=== PATIENT | female | born 1950 | race Caucasian/White ===

== ENCOUNTER 2017-07-15 08:48 | Inpatient (IN) | payer MEDICARE, OTHER, BC ==
[2017-07-15 11:18] LABS: ADD MAN DIFF? NO
[2017-07-15 11:20] LABS: WHITE BLOOD COUNT 15.3 10^3/ul (4.8-10.8)
[2017-07-15 11:20] LABS: BASOPHILS % 0.2 % (0.0-2.0); EOSINOPHILS % 0.1 % (0.0-7.0); HEMOGLOBIN 7.9 g/dl (12.0-16.0); LYMPHOCYTES # 1.5 10^3/ul (0.8-2.9); LYMPHOCYTES % 9.9 % (15.0-51.0); MEAN CORPUSCULAR HEMOGLOBIN 25.8 pg (29.0-33.0); MEAN CORPUSCULAR HGB CONC 32.9 g/dl (32.0-37.0); MEAN CORPUSCULAR VOLUME 78.4 fl (82.0-101.0); MEAN PLATELET VOLUME 8.7 fl (7.4-10.4); MONOCYTE # 1.5 10^3/ul (0.3-0.9); MONOCYTES % 9.7 % (0.0-11.0); NEUTROPHIL # 11.8 10^3/ul (1.6-7.5); NEUTROPHILS % 76.9 % (39.0-77.0); PLATELET COUNT 422 10^3/UL (140-415); RED BLOOD COUNT 3.06 10^6/ul (4.20-5.40)
[2017-07-15 11:27] LABS: ALANINE AMINOTRANSFERASE 44 IU/L (13-69); ALBUMIN 3.6 g/dl (3.3-4.9); ALBUMIN/GLOBULIN RATIO 0.94; ALKALINE PHOSPHATASE 100 IU/L (42-121); ANION GAP 17 (8-16); ASPARTATE AMINO TRANSFERASE 39 IU/L (15-46); BILIRUBIN,INDIRECT 0.3 mg/dl (0-1.1); BILIRUBIN,TOTAL 0.3 mg/dl (0.2-1.3); BLOOD UREA NITROGEN 30 mg/dl (7-20); CALCIUM 9.6 mg/dl (8.4-10.2); CARBON DIOXIDE 18 mmol/L (21-31); CHLORIDE 102 mmol/L (97-110); CREATININE 1.42 mg/dl (0.44-1.00); GLUCOSE 141 mg/dl (70-220); POTASSIUM 4.1 mmol/L (3.5-5.1); SODIUM 133 mmol/L (135-144); TOTAL PROTEIN 7.4 g/dl (6.1-8.1)
[2017-07-15 11:45] LABS: ETHANOL < 10.0 mg/dl
[2017-07-15] MEDS: SOD CHLORIDE 0.9% 1,000 ML IV ×2 (12:51→22:34)
[2017-07-15] MEDS ORDERED: ONDANSETRON 4 MG INJ IV (14:30)
[2017-07-15] MEDS ORDERED: ACETAMINOPHEN 325 MG TAB PO (14:30)
[2017-07-15 15:33] LABS: ADD MAN DIFF? NO
[2017-07-15 15:35] LABS: BASOPHILS % 0.2 % (0.0-2.0); EOSINOPHILS # 0.1 10^3/ul (0.0-0.5); EOSINOPHILS % 0.4 % (0.0-7.0); HEMATOCRIT 22.3 % (37.0-47.0); HEMOGLOBIN 7.3 g/dl (12.0-16.0); LYMPHOCYTES # 1.8 10^3/ul (0.8-2.9); MEAN CORPUSCULAR HEMOGLOBIN 26.1 pg (29.0-33.0); MEAN CORPUSCULAR HGB CONC 32.7 g/dl (32.0-37.0); MEAN CORPUSCULAR VOLUME 79.6 fl (82.0-101.0); MEAN PLATELET VOLUME 8.7 fl (7.4-10.4); MONOCYTE # 1.3 10^3/ul (0.3-0.9); MONOCYTES % 9.8 % (0.0-11.0); NEUTROPHILS % 72.4 % (39.0-77.0); PLATELET COUNT 392 10^3/UL (140-415); RED CELL DISTRIBUTION WIDTH 20.8 % (11.5-14.5)
[2017-07-15 15:35] LABS: WHITE BLOOD COUNT 13.7 10^3/ul (4.8-10.8)
[2017-07-15 15:52] LABS: ANION GAP 14 (8-16); BLOOD UREA NITROGEN 28 mg/dl (7-20); CALCIUM 8.9 mg/dl (8.4-10.2); CARBON DIOXIDE 19 mmol/L (21-31); CHLORIDE 103 mmol/L (97-110); CREATININE 1.23 mg/dl (0.44-1.00); GLUCOSE 102 mg/dl (70-220); SODIUM 132 mmol/L (135-144)
[2017-07-15] MEDS ORDERED: MAGNESIUM HYDROXIDE 30ML CUP PO (18:00)
[2017-07-15] MEDS ORDERED: ZOLPIDEM 5 MG TAB PO (18:00)
[2017-07-15] MEDS ORDERED: DOCUSATE SODIUM 100 MG CAP PO (18:00)
[2017-07-15] MEDS ORDERED: NACL 0.9% 3 ML SYG IV (18:00)
[2017-07-15 18:45] LABS: IRON 16 ug/dl (35-150)
[2017-07-15 18:55] LABS: % IRON SATURATION 8 % SAT (22-52); TOTAL IRON BINDING CAPACITY 191 ug/dl (241-421)
[2017-07-15 19:18] LABS: CARCINOEMBRYONIC ANTIGEN 1.6 ng/ml (0.0-5.0)
[2017-07-15] MEDS: LORAZEPAM 0.5 MG TAB PO (20:41)
[2017-07-15] MEDS: morphine 2 MG INJ IV (20:41)
[2017-07-15] MEDS: QUETIAPINE 25 MG TAB PO (21:00)
[2017-07-15 22:49] LABS: ADD UMIC YES; UR ASCORBIC ACID 20 mg/dL (NEGATIVE); UR BACTERIA MODERATE /HPF (NONE SEEN); UR BILIRUBIN (Dip) NEGATIVE (NEGATIVE); UR BLOOD (Dip) 2+ mg/dL (NEGATIVE); UR CLARITY TURBID (CLEAR); UR COLOR YELLOW (YELLOW); UR GLUCOSE (Dip) NEGATIVE (NEGATIVE); UR KETONES (Dip) NEGATIVE (NEGATIVE); UR LEUKOCYTE ESTERASE (Dip) 3+ Leu/ul (NEGATIVE); UR NITRITE (Dip) NEGATIVE (NEGATIVE); UR NONSQUAMOUS EPITHELIAL CELL 5 /HPF (NONE SEEN); UR RBC 26 /HPF (0-5); UR RENAL EPITHELIAL CELL FEW /HPF (NONE SEEN); UR TOTAL PROTEIN (Dip) 2+ mg/dl (NEGATIVE); UR UROBILINOGEN (Dip) NEGATIVE (NEGATIVE); UR WBC > 182 /HPF (0-5)
[2017-07-15 23:02] LABS: AMPHETAMINE/METHAMPHETAMINE Negative (NEGATIVE); BARBITURATES Negative (NEGATIVE); BENZODIAZEPINES Negative (NEGATIVE)
[2017-07-15 23:03] LABS: CANNABINOIDS Negative (NEGATIVE); COCAINE Negative (NEGATIVE); OPIATES Positive (NEGATIVE)
[2017-07-16] MEDS: ACETAMINOPHEN 325 MG TAB PO (01:16)
[2017-07-16] MEDS: PANTOPRAZOLE (EC) 40 MG TAB PO (05:03)
[2017-07-16 08:13] LABS: IMMEDIATE SPIN CROSSMATCH 1 2
[2017-07-16] MEDS: QUETIAPINE 25 MG TAB PO ×2 (08:35→20:49)
[2017-07-16] MEDS: CEFTRIAXONE 1 GM/50 ML (PMX) 50 ML IVPB (10:34)
[2017-07-16 12:40] LABS: ADD MAN DIFF? NO
[2017-07-16 12:42] LABS: WHITE BLOOD COUNT 11.3 10^3/ul (4.8-10.8)
[2017-07-16 12:42] LABS: BASOPHILS % 0.4 % (0.0-2.0); EOSINOPHILS # 0.1 10^3/ul (0.0-0.5); EOSINOPHILS % 1.1 % (0.0-7.0); HEMATOCRIT 29.4 % (37.0-47.0); HEMOGLOBIN 9.8 g/dl (12.0-16.0); LYMPHOCYTES # 1.4 10^3/ul (0.8-2.9); MEAN CORPUSCULAR HGB CONC 33.3 g/dl (32.0-37.0); MEAN PLATELET VOLUME 8.5 fl (7.4-10.4); MONOCYTE # 1.1 10^3/ul (0.3-0.9); NEUTROPHIL # 8.1 10^3/ul (1.6-7.5); NEUTROPHILS % 71.9 % (39.0-77.0); PLATELET COUNT 306 10^3/UL (140-415); RED BLOOD COUNT 3.63 10^6/ul (4.20-5.40); RED CELL DISTRIBUTION WIDTH 18.2 % (11.5-14.5)
[2017-07-16] MEDS: SOD CHLORIDE 0.9% 1,000 ML IV (12:48)
[2017-07-16 13:04] LABS: ALANINE AMINOTRANSFERASE 37 IU/L (13-69); ALBUMIN 2.8 g/dl (3.3-4.9); ALKALINE PHOSPHATASE 77 IU/L (42-121); ANION GAP 12 (8-16); ASPARTATE AMINO TRANSFERASE 35 IU/L (15-46); BLOOD UREA NITROGEN 22 mg/dl (7-20); CALCIUM 8.9 mg/dl (8.4-10.2); CARBON DIOXIDE 17 mmol/L (21-31); CHLORIDE 110 mmol/L (97-110); GLUCOSE 103 mg/dl (70-220); MAGNESIUM 1.8 mg/dl (1.7-2.5); PHOSPHORUS 3.9 mg/dl (2.5-4.9); POTASSIUM 4.3 mmol/L (3.5-5.1); SODIUM 135 mmol/L (135-144); TOTAL PROTEIN 6.3 g/dl (6.1-8.1)
[2017-07-16] MEDS: LORAZEPAM 0.5 MG TAB PO (17:33)
[2017-07-17] MEDS: PANTOPRAZOLE (EC) 40 MG TAB PO (05:11)
[2017-07-17 05:38] LABS: WHITE BLOOD COUNT 13.3 10^3/ul (4.8-10.8)
[2017-07-17 05:38] LABS: ADD MAN DIFF? NO; BASOPHILS % 0.3 % (0.0-2.0); EOSINOPHILS # 0.1 10^3/ul (0.0-0.5); HEMATOCRIT 30.2 % (37.0-47.0); HEMOGLOBIN 10.2 g/dl (12.0-16.0); LYMPHOCYTES # 1.8 10^3/ul (0.8-2.9); LYMPHOCYTES % 13.8 % (15.0-51.0); MEAN CORPUSCULAR HEMOGLOBIN 27.3 pg (29.0-33.0); MEAN CORPUSCULAR HGB CONC 33.8 g/dl (32.0-37.0); MEAN PLATELET VOLUME 8.8 fl (7.4-10.4); MONOCYTES % 7.6 % (0.0-11.0); NEUTROPHIL # 9.7 10^3/ul (1.6-7.5); NEUTROPHILS % 72.9 % (39.0-77.0); PLATELET COUNT 321 10^3/UL (140-415); RED BLOOD COUNT 3.73 10^6/ul (4.20-5.40)
[2017-07-17 06:02] LABS: MAGNESIUM 1.4 mg/dl (1.7-2.5)
[2017-07-17 06:02] LABS: PHOSPHORUS 3.8 mg/dl (2.5-4.9)
[2017-07-17 06:08] LABS: ANION GAP 11 (8-16); BLOOD UREA NITROGEN 18 mg/dl (7-20); CALCIUM 8.6 mg/dl (8.4-10.2); CARBON DIOXIDE 17 mmol/L (21-31); CHLORIDE 109 mmol/L (97-110); CREATININE 1.17 mg/dl (0.44-1.00); GLUCOSE 83 mg/dl (70-220); POTASSIUM 3.4 mmol/L (3.5-5.1); SODIUM 134 mmol/L (135-144)
[2017-07-17] MEDS: INFLUENZA VIRUS VACCINE 0.5 ML (DISPENSING) IM* (08:26)
[2017-07-17] MEDS: QUETIAPINE 25 MG TAB PO ×2 (08:26→20:42)
[2017-07-17] MEDS: CEFTRIAXONE 1 GM/50 ML (PMX) 50 ML IVPB (10:24)
[2017-07-17] MEDS: LORAZEPAM 0.5 MG TAB PO (18:17)
[2017-07-17] MEDS: POTASSIUM CHLORIDE (SR) 20 MEQ TAB PO (18:17)
[2017-07-17] MEDS: ESCITALOPRAM 10 MG TAB PO (18:17)
[2017-07-17] MEDS: MAGNESIUM SULFATE 2 GM/50 ML 50 ML IVPB (19:36)
[2017-07-17] MEDS: MEROPENEM 1 GM/50ML(PMX) 50 ML IVPB (23:15)
[2017-07-18] MEDS: PANTOPRAZOLE (EC) 40 MG TAB PO (06:11)
[2017-07-18] MEDS: QUETIAPINE 25 MG TAB PO ×2 (09:15→20:45)
[2017-07-18] MEDS: ESCITALOPRAM 10 MG TAB PO (09:15)
[2017-07-18] MEDS: MEROPENEM 1 GM/50ML(PMX) 50 ML IVPB ×2 (09:17→20:45)
[2017-07-19 04:50] LABS: ADD MAN DIFF? NO
[2017-07-19 04:56] LABS: BASOPHIL # 0.1 10^3/ul (0.0-0.1); BASOPHILS % 0.6 % (0.0-2.0); EOSINOPHILS # 0.3 10^3/ul (0.0-0.5); EOSINOPHILS % 2.9 % (0.0-7.0); HEMATOCRIT 31.4 % (37.0-47.0); HEMOGLOBIN 10.3 g/dl (12.0-16.0); LYMPHOCYTES # 2.4 10^3/ul (0.8-2.9); LYMPHOCYTES % 22.2 % (15.0-51.0); MEAN CORPUSCULAR HEMOGLOBIN 26.9 pg (29.0-33.0); MEAN CORPUSCULAR HGB CONC 32.8 g/dl (32.0-37.0); MONOCYTE # 0.8 10^3/ul (0.3-0.9); MONOCYTES % 7.1 % (0.0-11.0); NEUTROPHIL # 6.8 10^3/ul (1.6-7.5); NEUTROPHILS % 63.7 % (39.0-77.0); PLATELET COUNT 375 10^3/UL (140-415); RED BLOOD COUNT 3.83 10^6/ul (4.20-5.40)
[2017-07-19 04:56] LABS: WHITE BLOOD COUNT 10.7 10^3/ul (4.8-10.8)
[2017-07-19 05:14] LABS: PHOSPHORUS 3.5 mg/dl (2.5-4.9)
[2017-07-19 05:14] LABS: MAGNESIUM 1.7 mg/dl (1.7-2.5)
[2017-07-19 05:31] LABS: ANION GAP 14 (8-16); BLOOD UREA NITROGEN 17 mg/dl (7-20); CALCIUM 8.9 mg/dl (8.4-10.2); CARBON DIOXIDE 18 mmol/L (21-31); CHLORIDE 112 mmol/L (97-110); CREATININE 1.28 mg/dl (0.44-1.00); GLUCOSE 95 mg/dl (70-220); POTASSIUM 3.5 mmol/L (3.5-5.1); SODIUM 140 mmol/L (135-144)
[2017-07-19] MEDS: PANTOPRAZOLE (EC) 40 MG TAB PO (06:15)
[2017-07-19] MEDS: POLYETHYLENE GLYCOL 3350 119 GM POWDER PO ×2 (06:16→19:24)
[2017-07-19] MEDS: MEROPENEM 1 GM/50ML(PMX) 50 ML IVPB ×2 (08:54→20:37)
[2017-07-19] MEDS: QUETIAPINE 25 MG TAB PO ×2 (08:54→20:38)
[2017-07-19] MEDS: ESCITALOPRAM 10 MG TAB PO (08:54)
[2017-07-19] MEDS: BISACODYL (EC) 5 MG TAB PO ×2 (08:55→16:05)
[2017-07-19 16:20] LABS: OCCULT BLOOD STOOL NEGATIVE (NEGATIVE)
[2017-07-19] MEDS: MAGNESIUM CITRATE 300 ML BTL PO (18:26)
[2017-07-20] MEDS: PANTOPRAZOLE (EC) 40 MG TAB PO (06:13)
[2017-07-20] MEDS: QUETIAPINE 25 MG TAB PO ×2 (08:19→20:36)
[2017-07-20] MEDS: ESCITALOPRAM 10 MG TAB PO (08:19)
[2017-07-20] MEDS: MEROPENEM 1 GM/50ML(PMX) 50 ML IVPB ×2 (08:44→20:36)
[2017-07-20] MEDS ORDERED: PROPOFOL 20 ML (15:46)
[2017-07-20] MEDS ORDERED: LIDOCAINE 2% (SDV) 5 ML INJ (15:46)
[2017-07-20] MEDS ORDERED: MIDAZOLAM 1 MG/ML 2 ML INJ (15:50)
[2017-07-20] MEDS ORDERED: ONDANSETRON 4 MG INJ IV (16:00)
[2017-07-20] MEDS ORDERED: EPHEDrine SULFATE 50 MG/5 ML SYG (16:11)
[2017-07-21] MEDS: LORAZEPAM 0.5 MG TAB PO (01:24)
[2017-07-21] MEDS: morphine LIQ (10 MG/5 ML) CUP PO ×2 (02:54→08:30)
[2017-07-21 05:35] LABS: ADD MAN DIFF? NO
[2017-07-21 05:38] LABS: WHITE BLOOD COUNT 10.2 10^3/ul (4.8-10.8)
[2017-07-21 05:38] LABS: BASOPHIL # 0.1 10^3/ul (0.0-0.1); BASOPHILS % 0.5 % (0.0-2.0); EOSINOPHILS # 0.5 10^3/ul (0.0-0.5); HEMATOCRIT 32.1 % (37.0-47.0); HEMOGLOBIN 10.5 g/dl (12.0-16.0); LYMPHOCYTES # 2.2 10^3/ul (0.8-2.9); MEAN CORPUSCULAR HEMOGLOBIN 26.9 pg (29.0-33.0); MEAN CORPUSCULAR HGB CONC 32.7 g/dl (32.0-37.0); MEAN CORPUSCULAR VOLUME 82.1 fl (82.0-101.0); MONOCYTE # 0.8 10^3/ul (0.3-0.9); MONOCYTES % 7.5 % (0.0-11.0); NEUTROPHIL # 6.3 10^3/ul (1.6-7.5); NEUTROPHILS % 61.6 % (39.0-77.0); PLATELET COUNT 392 10^3/UL (140-415); RED BLOOD COUNT 3.91 10^6/ul (4.20-5.40); RED CELL DISTRIBUTION WIDTH 18.4 % (11.5-14.5)
[2017-07-21] MEDS: PANTOPRAZOLE (EC) 40 MG TAB PO (05:59)
[2017-07-21 06:12] LABS: ANION GAP 16 (8-16); BLOOD UREA NITROGEN 16 mg/dl (7-20); CALCIUM 9.1 mg/dl (8.4-10.2); CARBON DIOXIDE 19 mmol/L (21-31); CHLORIDE 113 mmol/L (97-110); GLUCOSE 82 mg/dl (70-220); POTASSIUM 3.7 mmol/L (3.5-5.1); SODIUM 144 mmol/L (135-144)
[2017-07-21 06:23] LABS: PHOSPHORUS 3.5 mg/dl (2.5-4.9)
[2017-07-21 06:23] LABS: MAGNESIUM 1.7 mg/dl (1.7-2.5)
[2017-07-21] MEDS: ESCITALOPRAM 10 MG TAB PO (08:22)
[2017-07-21] MEDS: MEROPENEM 1 GM/50ML(PMX) 50 ML IVPB ×2 (08:22→20:44)
[2017-07-21] MEDS: QUETIAPINE 25 MG TAB PO ×2 (08:22→20:44)
[2017-07-22] MEDS: PANTOPRAZOLE (EC) 40 MG TAB PO (05:16)
[2017-07-22] MEDS: MEROPENEM 1 GM/50ML(PMX) 50 ML IVPB (09:09)
[2017-07-22] MEDS: ESCITALOPRAM 10 MG TAB PO (09:09)
[2017-07-22] MEDS: QUETIAPINE 25 MG TAB PO (09:09)
[2017-07-22] MEDS: morphine LIQ (10 MG/5 ML) CUP PO ×2 (11:17→17:11)
[2017-07-22] MEDS: HYDROCODONE/APAP (5/325) TAB PO (20:00)
== END 2017-07-22 20:56 | DRG 885 ==
LOC: MS1 20:17 → E/R 08:48 → MS1 14:19
PROC: 30233N1 Transfusion of Nonautologous Red Blood Cells into Peripheral Vein, Percutaneous Approach (ICD-10-PCS; principal; 2017-07-20 15:10)
PROC: 0DB68ZX Excision of Stomach, Via Natural or Artificial Opening Endoscopic, Diagnostic (ICD-10-PCS; 2017-07-20 15:10)
PROC: 0DJD8ZZ Inspection of Lower Intestinal Tract, Via Natural or Artificial Opening Endoscopic (ICD-10-PCS; 2017-07-20 15:10)
DX: F23 Brief psychotic disorder (principal); N17.9 Acute kidney failure, unspecified; I69.954 Hemiplegia and hemiparesis following unspecified cerebrovascular disease affecting left non-dominant side; R45.851 Suicidal ideations; N39.0 Urinary tract infection, site not specified; I12.9 Hypertensive chronic kidney disease with stage 1 through stage 4 chronic kidney disease, or unspecified chronic kidney disease; J44.9 Chronic obstructive pulmonary disease, unspecified; E86.0 Dehydration; N18.9 Chronic kidney disease, unspecified; F32.9 Major depressive disorder, single episode, unspecified; F41.9 Anxiety disorder, unspecified; R63.4 Abnormal weight loss; Z68.20 Body mass index [BMI] 20.0-20.9, adult; B96.20 Unspecified Escherichia coli [E. coli] as the cause of diseases classified elsewhere; K20.9 Esophagitis, unspecified; K44.9 Diaphragmatic hernia without obstruction or gangrene; K29.70 Gastritis, unspecified, without bleeding; K64.8 Other hemorrhoids; D50.9 Iron deficiency anemia, unspecified; D63.8 Anemia in other chronic diseases classified elsewhere; Z95.810 Presence of automatic (implantable) cardiac defibrillator
CPT/HCPCS: 36430; 71045; 80048; 80053; 80306; 80307; 81001; 82270; 82378; 82607; 83540; 83735; 84100; 85025; 86850; 86900; 86901; 86920; 87081; 87086; 88305; 88312; 93005; 96374; 97110; 97116; 97162; 97530; 99285-25

== ENCOUNTER 2017-09-20 12:38 | Inpatient (IN) | payer MEDICARE, OTHER ==
[2017-09-20 15:36] LABS: WHITE BLOOD COUNT 27.2 10^3/ul (4.8-10.8)
[2017-09-20 15:36] LABS: ABNORMAL IP MESSAGE 1; ADD UMIC YES; HEMATOCRIT 39.7 % (37.0-47.0); HEMOGLOBIN 12.7 g/dl (12.0-16.0); MEAN CORPUSCULAR VOLUME 87.4 fl (82.0-101.0); MEAN PLATELET VOLUME 8.6 fl (7.4-10.4); PLATELET COUNT 260 10^3/UL (140-415); RED BLOOD COUNT 4.54 10^6/ul (4.20-5.40); RED CELL DISTRIBUTION WIDTH 15.9 % (11.5-14.5); UR ASCORBIC ACID 20 mg/dL (NEGATIVE); UR BACTERIA FEW /HPF (NONE SEEN); UR BILIRUBIN (Dip) NEGATIVE (NEGATIVE); UR BLOOD (Dip) 1+ mg/dL (NEGATIVE); UR CLARITY TURBID (CLEAR); UR COLOR AMBER (YELLOW); UR GLUCOSE (Dip) NEGATIVE (NEGATIVE); UR KETONES (Dip) NEGATIVE (NEGATIVE); UR LEUKOCYTE ESTERASE (Dip) 2+ Leu/ul (NEGATIVE); UR NITRITE (Dip) POSITIVE (NEGATIVE); UR RBC 0 /HPF (0-5); UR SPECIFIC GRAVITY (Dip) 1.005 (1.003-1.030); UR TOTAL PROTEIN (Dip) 1+ mg/dl (NEGATIVE); UR UROBILINOGEN (Dip) 2+ mg/dL (NEGATIVE); UR WBC > 182 /HPF (0-5)
[2017-09-20 15:38] LABS: POSITIVE DIFF @See below
[2017-09-20 15:39] LABS: ADD MAN DIFF? YES
[2017-09-20 15:59] LABS: ALANINE AMINOTRANSFERASE 12 IU/L (13-69); ALBUMIN 4.3 g/dl (3.3-4.9); ALBUMIN/GLOBULIN RATIO 0.89; ALKALINE PHOSPHATASE 102 IU/L (42-121); ANION GAP 20 (8-16); ASPARTATE AMINO TRANSFERASE 28 IU/L (15-46); BILIRUBIN,INDIRECT 1.1 mg/dl (0-1.1); BILIRUBIN,TOTAL 1.1 mg/dl (0.2-1.3); BLOOD UREA NITROGEN 15 mg/dl (7-20); CALCIUM 9.6 mg/dl (8.4-10.2); CARBON DIOXIDE 17 mmol/L (21-31); CHLORIDE 108 mmol/L (97-110); CREATININE 1.28 mg/dl (0.44-1.00); GLUCOSE 112 mg/dl (70-220); LIPASE 142 U/L (23-300); POTASSIUM 4.1 mmol/L (3.5-5.1); SODIUM 141 mmol/L (135-144); TOTAL PROTEIN 9.1 g/dl (6.1-8.1)
[2017-09-20 16:22] LABS: EOSINOPHILS % (M) 2 % (0-7); LYMPHOCYTES #M 2.1 10^3/ul (0.8-2.9); LYMPHOCYTES % (M) 8 % (15-51); MONOCYTE #M 0.8 10^3/ul (0.3-0.9); MONOCYTES % (M) 3 % (0-11); PLATELET ESTIMATE NORMAL; SEGMENTED NEUTROPHILS (M) % 87 % (39-77); SMUDGE%M 3 % (0-0)
[2017-09-20] MEDS: SODIUM CHLORIDE 0.9% 1L BAG IV* (16:54)
[2017-09-20] MEDS: CEFTRIAXONE 1 GM/50 ML (PMX) 50 ML IVPB (16:55)
[2017-09-20] MEDS: SOD CHLORIDE 0.9% 1,000 ML IV ×2 (17:00→22:32)
[2017-09-20] MEDS ORDERED: DOCUSATE SODIUM 100 MG CAP PO (17:00)
[2017-09-20] MEDS ORDERED: ACETAMINOPHEN 325 MG TAB PO ×2 (17:00)
[2017-09-20] MEDS ORDERED: NACL 0.9% 3 ML SYG IV (17:00)
[2017-09-20] MEDS ORDERED: ONDANSETRON 4 MG INJ IV ×2 (17:00)
[2017-09-20] MEDS ORDERED: MAGNESIUM HYDROXIDE 30ML CUP PO (17:00)
[2017-09-20 18:40] LABS: LACTIC ACID 1.1 mmol/L (0.5-2.0)
[2017-09-20 18:41] LABS: INR 1.18; PROTIME 15.2 Sec (11.9-14.9); PT RATIO 1.2
[2017-09-20 18:42] LABS: PARTIAL THROMBOPLASTIN TIME 40.5 Sec (25.0-35.0)
[2017-09-20 21:52] LABS: LACTIC ACID 1.5 mmol/L (0.5-2.0)
[2017-09-20] MEDS: ZOLPIDEM 5 MG TAB PO (23:20)
[2017-09-20] MEDS: ATORVASTATIN 80 MG TAB PO (23:20)
[2017-09-20 23:40] LABS: LACTIC ACID 1.5 mmol/L (0.5-2.0)
[2017-09-21] MEDS: CEFEPIME 1GM/50 ML (PMX) 50 ML IV ×3 (00:32→20:40)
[2017-09-21 07:11] LABS: ADD MAN DIFF? NO
[2017-09-21 07:16] LABS: BASOPHILS % 0.2 % (0.0-2.0); EOSINOPHILS # 0.4 10^3/ul (0.0-0.5); EOSINOPHILS % 2.7 % (0.0-7.0); HEMATOCRIT 30.4 % (37.0-47.0); HEMOGLOBIN 9.7 g/dl (12.0-16.0); LYMPHOCYTES # 2.5 10^3/ul (0.8-2.9); LYMPHOCYTES % 18.6 % (15.0-51.0); MEAN CORPUSCULAR HEMOGLOBIN 28.4 pg (29.0-33.0); MEAN CORPUSCULAR HGB CONC 31.9 g/dl (32.0-37.0); MEAN CORPUSCULAR VOLUME 89.1 fl (82.0-101.0); MONOCYTE # 1.1 10^3/ul (0.3-0.9); MONOCYTES % 8.3 % (0.0-11.0); NEUTROPHIL # 9.2 10^3/ul (1.6-7.5); NEUTROPHILS % 69.6 % (39.0-77.0); PLATELET COUNT 213 10^3/UL (140-415); RED BLOOD COUNT 3.41 10^6/ul (4.20-5.40); RED CELL DISTRIBUTION WIDTH 16.2 % (11.5-14.5)
[2017-09-21 07:16] LABS: WHITE BLOOD COUNT 13.2 10^3/ul (4.8-10.8)
[2017-09-21 07:28] LABS: HEMOGLOBIN A1C 5.4 % (0-5.9)
[2017-09-21 08:12] LABS: ALANINE AMINOTRANSFERASE 16 IU/L (13-69); ALBUMIN 3.2 g/dl (3.3-4.9); ALBUMIN/GLOBULIN RATIO 0.88; ALKALINE PHOSPHATASE 69 IU/L (42-121); ASPARTATE AMINO TRANSFERASE 17 IU/L (15-46); BILIRUBIN,INDIRECT 0.9 mg/dl (0-1.1); BILIRUBIN,TOTAL 0.9 mg/dl (0.2-1.3); BLOOD UREA NITROGEN 15 mg/dl (7-20); CALCIUM 8.9 mg/dl (8.4-10.2); CARBON DIOXIDE 18 mmol/L (21-31); CHLORIDE 116 mmol/L (97-110); CREATININE 1.18 mg/dl (0.44-1.00); GLUCOSE 94 mg/dl (70-220); POTASSIUM 3.6 mmol/L (3.5-5.1); TOTAL PROTEIN 6.8 g/dl (6.1-8.1)
[2017-09-21 08:29] LABS: ANION GAP 15 (8-16); SODIUM 145 mmol/L (135-144)
[2017-09-21] MEDS: ASPIRIN 325 MG TAB PO (08:46)
[2017-09-21] MEDS: ENOXAPARIN 30 MG/0.3 ML SYG SC (08:48)
[2017-09-21] MEDS: SOD CHLORIDE 0.9% 1,000 ML IV (13:33)
[2017-09-21] MEDS: HYDROCODONE/APAP (5/325) TAB PO ×2 (13:42→21:50)
[2017-09-21] MEDS ORDERED: LORAZEPAM 0.5 MG TAB PO (18:30)
[2017-09-21] MEDS: ZOLPIDEM 5 MG TAB PO (20:44)
[2017-09-21] MEDS: ATORVASTATIN 80 MG TAB PO (20:45)
[2017-09-22 07:49] LABS: ADD MAN DIFF? NO
[2017-09-22 07:58] LABS: BASOPHILS % 0.2 % (0.0-2.0); EOSINOPHILS # 0.5 10^3/ul (0.0-0.5); EOSINOPHILS % 5.1 % (0.0-7.0); HEMATOCRIT 32.2 % (37.0-47.0); HEMOGLOBIN 10.3 g/dl (12.0-16.0); LYMPHOCYTES # 2.6 10^3/ul (0.8-2.9); LYMPHOCYTES % 28.4 % (15.0-51.0); MEAN CORPUSCULAR HEMOGLOBIN 27.9 pg (29.0-33.0); MEAN CORPUSCULAR VOLUME 87.3 fl (82.0-101.0); MEAN PLATELET VOLUME 9.1 fl (7.4-10.4); MONOCYTE # 0.7 10^3/ul (0.3-0.9); NEUTROPHIL # 5.2 10^3/ul (1.6-7.5); NEUTROPHILS % 57.7 % (39.0-77.0); PLATELET COUNT 240 10^3/UL (140-415); RED BLOOD COUNT 3.69 10^6/ul (4.20-5.40)
[2017-09-22 08:09] LABS: PHOSPHORUS 3.5 mg/dl (2.5-4.9)
[2017-09-22 08:09] LABS: MAGNESIUM 1.7 mg/dl (1.7-2.5)
[2017-09-22 08:14] LABS: ANION GAP 15 (8-16); BLOOD UREA NITROGEN 18 mg/dl (7-20); CALCIUM 9.4 mg/dl (8.4-10.2); CARBON DIOXIDE 18 mmol/L (21-31); CHLORIDE 119 mmol/L (97-110); CREATININE 1.21 mg/dl (0.44-1.00); GLUCOSE 98 mg/dl (70-220); POTASSIUM 3.5 mmol/L (3.5-5.1); SODIUM 148 mmol/L (135-144)
[2017-09-22] MEDS: ASPIRIN 325 MG TAB PO (08:53)
[2017-09-22] MEDS: ENOXAPARIN 30 MG/0.3 ML SYG SC (08:58)
[2017-09-22] MEDS: HYDROCODONE/APAP (5/325) TAB PO ×2 (09:53→18:28)
[2017-09-22] MEDS: CEFEPIME 1GM/50 ML (PMX) 50 ML IV ×2 (09:53→20:46)
[2017-09-22] MEDS: LORAZEPAM 0.5 MG TAB PO (19:30)
[2017-09-22] MEDS: ATORVASTATIN 80 MG TAB PO (20:47)
[2017-09-22] MEDS: ZOLPIDEM 5 MG TAB PO (20:55)
[2017-09-23 06:52] LABS: ADD MAN DIFF? NO
[2017-09-23 06:58] LABS: BASOPHILS % 0.5 % (0.0-2.0); EOSINOPHILS # 0.5 10^3/ul (0.0-0.5); EOSINOPHILS % 5.8 % (0.0-7.0); HEMATOCRIT 32.5 % (37.0-47.0); HEMOGLOBIN 10.4 g/dl (12.0-16.0); LYMPHOCYTES # 2.9 10^3/ul (0.8-2.9); LYMPHOCYTES % 36.8 % (15.0-51.0); MEAN CORPUSCULAR HEMOGLOBIN 27.8 pg (29.0-33.0); MEAN CORPUSCULAR VOLUME 86.9 fl (82.0-101.0); MEAN PLATELET VOLUME 9.4 fl (7.4-10.4); MONOCYTE # 0.5 10^3/ul (0.3-0.9); MONOCYTES % 6.9 % (0.0-11.0); NEUTROPHIL # 3.9 10^3/ul (1.6-7.5); NEUTROPHILS % 49.6 % (39.0-77.0); PLATELET COUNT 288 10^3/UL (140-415); RED BLOOD COUNT 3.74 10^6/ul (4.20-5.40)
[2017-09-23 06:58] LABS: WHITE BLOOD COUNT 7.9 10^3/ul (4.8-10.8)
[2017-09-23 07:23] LABS: MAGNESIUM 1.6 mg/dl (1.7-2.5)
[2017-09-23 07:23] LABS: PHOSPHORUS 4.1 mg/dl (2.5-4.9)
[2017-09-23 07:29] LABS: ANION GAP 15 (8-16); BLOOD UREA NITROGEN 14 mg/dl (7-20); CALCIUM 9.6 mg/dl (8.4-10.2); CARBON DIOXIDE 18 mmol/L (21-31); CHLORIDE 116 mmol/L (97-110); CREATININE 1.03 mg/dl (0.44-1.00); GLUCOSE 98 mg/dl (70-220); POTASSIUM 3.4 mmol/L (3.5-5.1); SODIUM 146 mmol/L (135-144)
[2017-09-23] MEDS: ASPIRIN 325 MG TAB PO (08:41)
[2017-09-23] MEDS: CEFEPIME 1GM/50 ML (PMX) 50 ML IV ×2 (08:41→20:57)
[2017-09-23] MEDS: ENOXAPARIN 30 MG/0.3 ML SYG SC (08:42)
[2017-09-23] MEDS: HYDROCODONE/APAP (5/325) TAB PO (08:47)
[2017-09-23] MEDS: LORAZEPAM 0.5 MG TAB PO ×2 (09:11→13:10)
[2017-09-23] MEDS: MAGNESIUM SULFATE 2 GM/50 ML 50 ML IVPB (16:21)
[2017-09-23] MEDS: POTASSIUM CHLORIDE (SR) 20 MEQ TAB PO (16:21)
[2017-09-23] MEDS: ZOLPIDEM 5 MG TAB PO (20:57)
[2017-09-23] MEDS: ATORVASTATIN 80 MG TAB PO (21:00)
[2017-09-24 07:51] LABS: ADD MAN DIFF? NO
[2017-09-24 08:01] LABS: WHITE BLOOD COUNT 7.6 10^3/ul (4.8-10.8)
[2017-09-24 08:01] LABS: BASOPHILS % 0.4 % (0.0-2.0); EOSINOPHILS # 0.3 10^3/ul (0.0-0.5); EOSINOPHILS % 4.1 % (0.0-7.0); HEMATOCRIT 34.7 % (37.0-47.0); LYMPHOCYTES # 2.1 10^3/ul (0.8-2.9); LYMPHOCYTES % 27.2 % (15.0-51.0); MEAN CORPUSCULAR HEMOGLOBIN 27.8 pg (29.0-33.0); MEAN CORPUSCULAR HGB CONC 31.7 g/dl (32.0-37.0); MEAN CORPUSCULAR VOLUME 87.6 fl (82.0-101.0); MEAN PLATELET VOLUME 9.5 fl (7.4-10.4); MONOCYTE # 0.4 10^3/ul (0.3-0.9); MONOCYTES % 5.3 % (0.0-11.0); NEUTROPHIL # 4.7 10^3/ul (1.6-7.5); NEUTROPHILS % 62.6 % (39.0-77.0); PLATELET COUNT 327 10^3/UL (140-415); RED BLOOD COUNT 3.96 10^6/ul (4.20-5.40); RED CELL DISTRIBUTION WIDTH 16.1 % (11.5-14.5)
[2017-09-24 08:24] LABS: PHOSPHORUS 3.3 mg/dl (2.5-4.9)
[2017-09-24 08:24] LABS: MAGNESIUM 2.1 mg/dl (1.7-2.5)
[2017-09-24 08:33] LABS: ANION GAP 18 (8-16); BLOOD UREA NITROGEN 14 mg/dl (7-20); CALCIUM 9.8 mg/dl (8.4-10.2); CARBON DIOXIDE 19 mmol/L (21-31); CHLORIDE 112 mmol/L (97-110); CREATININE 0.94 mg/dl (0.44-1.00); GLUCOSE 96 mg/dl (70-220); POTASSIUM 4.4 mmol/L (3.5-5.1); SODIUM 145 mmol/L (135-144)
[2017-09-24] MEDS: ASPIRIN 325 MG TAB PO (08:39)
[2017-09-24] MEDS: CEFEPIME 1GM/50 ML (PMX) 50 ML IV (08:40)
[2017-09-24] MEDS: LORAZEPAM 0.5 MG TAB PO ×2 (08:40→14:29)
[2017-09-24] MEDS: ENOXAPARIN 30 MG/0.3 ML SYG SC ×3 (08:41→08:44)
[2017-09-24] MEDS: HYDROCODONE/APAP (5/325) TAB PO (13:45)
== END 2017-09-24 16:45 | DRG 872 ==
LOC: E/R 12:38 → MS4 16:42
DX: A41.9 Sepsis, unspecified organism (principal); N39.0 Urinary tract infection, site not specified; N17.9 Acute kidney failure, unspecified; I69.354 Hemiplegia and hemiparesis following cerebral infarction affecting left non-dominant side; I12.9 Hypertensive chronic kidney disease with stage 1 through stage 4 chronic kidney disease, or unspecified chronic kidney disease; N18.9 Chronic kidney disease, unspecified; E86.0 Dehydration; F41.8 Other specified anxiety disorders; Z95.0 Presence of cardiac pacemaker; B96.20 Unspecified Escherichia coli [E. coli] as the cause of diseases classified elsewhere
CPT/HCPCS: 36415; 71045; 73560; 80048; 80053; 81001; 83036; 83605; 83690; 83735; 84100; 84443; 85025; 85610; 85730; 87040; 87081; 87086; 96374; 97162; 99291-25

== ENCOUNTER 2018-12-19 14:05 | Inpatient (IN) | payer MEDICARE, OTHER ==
[2018-12-19] MEDS: morphine 2 MG INJ IV ×2 (17:18→22:54)
[2018-12-19 17:29] LABS: ADD MAN DIFF? NO
[2018-12-19 17:33] LABS: WHITE BLOOD COUNT 8.5 10^3/ul (4.8-10.8)
[2018-12-19 17:33] LABS: BASOPHILS % 0.4 % (0.0-2.0); EOSINOPHILS # 0.2 10^3/ul (0.0-0.5); EOSINOPHILS % 1.8 % (0.0-7.0); HEMATOCRIT 35.3 % (37.0-47.0); HEMOGLOBIN 11.5 g/dl (12.0-16.0); LYMPHOCYTES # 1.8 10^3/ul (0.8-2.9); LYMPHOCYTES % 21.2 % (15.0-51.0); MEAN CORPUSCULAR HEMOGLOBIN 28.3 pg (29.0-33.0); MEAN CORPUSCULAR HGB CONC 32.6 g/dl (32.0-37.0); MEAN CORPUSCULAR VOLUME 86.7 fl (82.0-101.0); MEAN PLATELET VOLUME 9.2 fl (7.4-10.4); MONOCYTE # 0.6 10^3/ul (0.3-0.9); MONOCYTES % 6.6 % (0.0-11.0); NEUTROPHIL # 5.9 10^3/ul (1.6-7.5); NEUTROPHILS % 69.6 % (39.0-77.0); PLATELET COUNT 247 10^3/UL (140-415); RED BLOOD COUNT 4.07 10^6/ul (4.20-5.40); RED CELL DISTRIBUTION WIDTH 13.9 % (11.5-14.5)
[2018-12-19 17:52] LABS: ANION GAP 7 (5-13); BLOOD UREA NITROGEN 14 mg/dl (7-20); CARBON DIOXIDE 25 mmol/L (21-31); CHLORIDE 109 mmol/L (97-110); CREATININE 0.88 mg/dl (0.44-1.00); Estimated GFR > 60 mL/min (>60); GLUCOSE 106 mg/dl (70-220); POTASSIUM 4.2 mmol/L (3.5-5.1); SODIUM 141 mmol/L (135-144)
[2018-12-19 19:21] LABS: PROTIME 13.3 Sec (11.9-14.9)
[2018-12-19 19:22] LABS: PARTIAL THROMBOPLASTIN TIME 32.5 Sec (23.0-35.0)
[2018-12-19] MEDS ORDERED: SOD CHLORIDE 0.9% 600 ML IV (20:30)
[2018-12-19] MEDS ORDERED: ZOLPIDEM 5 MG TAB PO (20:30)
[2018-12-19] MEDS: [UNRECOGNIZED DRUG - REMARK] XX (21:00)
[2018-12-19] MEDS: SOD CHLORIDE 0.9% 500 ML IV (21:11)
[2018-12-19] MEDS: SOD CHLORIDE 0.9% 1,000 ML IV (21:48)
[2018-12-19] MEDS: ATORVASTATIN 40 MG TAB PO (21:48)
[2018-12-19] MEDS: clonAZEPAM 0.5 MG TAB PO (21:49)
[2018-12-20] MEDS: DOCUSATE SODIUM 100 MG CAP PO (09:00)
[2018-12-20] MEDS: ASPIRIN 325 MG TAB PO (09:00)
[2018-12-20] MEDS: SENNA TAB PO (09:00)
[2018-12-20] MEDS: ESCITALOPRAM 10 MG TAB PO (09:02)
[2018-12-20] MEDS: clonAZEPAM 0.5 MG TAB PO ×2 (09:02→21:03)
[2018-12-20] MEDS ORDERED: MIDAZOLAM 1 MG/ML 2 ML INJ (13:14)
[2018-12-20] MEDS ORDERED: CEFAZOLIN 1 GM INJ (13:14)
[2018-12-20] MEDS ORDERED: morphine SULFATE/PF (10 MG/10 ML) INJ (13:14)
[2018-12-20] MEDS ORDERED: ROCURONIUM 50 MG INJ (13:14)
[2018-12-20] MEDS ORDERED: FENTAnyl 50 MCG/ML VIAL (13:15)
[2018-12-20] MEDS: POLYMYXIN/BACITRACIN 1L IRRIG (14:37)
[2018-12-20] MEDS ORDERED: LIDOCAINE 2% (SDV) 5 ML INJ (15:00)
[2018-12-20] MEDS ORDERED: ETOMIDATE 20 MG INJ (15:00)
[2018-12-20] MEDS ORDERED: ONDANSETRON 4 MG INJ (15:01)
[2018-12-20] MEDS ORDERED: DEXAMETHASONE 4 MG/ML 5 ML INJ (15:01)
[2018-12-20] MEDS ORDERED: SUGAMMADEX SODIUM 200 MG/2 ML VIAL IV (15:02)
[2018-12-20] MEDS ORDERED: MEPERIDINE 25 MG INJ IV (15:30)
[2018-12-20] MEDS ORDERED: HYDROmorphONE 0.5 MG/0.5 ML SYG IV (15:30)
[2018-12-20] MEDS ORDERED: ALBUTEROL 0.083% (NEB) 2.5 MG/3 ML AMP HHN (15:30)
[2018-12-20] MEDS ORDERED: ALBUMIN HUMAN 5% 250 ML IV (15:30)
[2018-12-20] MEDS ORDERED: HYDROmorphONE 1 MG/5 ML IV SYRINGE IV ×3 (15:30)
[2018-12-20] MEDS ORDERED: hydrALAzine 20 MG INJ IV (15:30)
[2018-12-20] MEDS ORDERED: ZOLPIDEM 5 MG TAB PO (15:30)
[2018-12-20] MEDS ORDERED: NACL 0.9% 3 ML SYG IV (15:30)
[2018-12-20] MEDS ORDERED: EPHEDrine 25 MG/5 ML SYG IV (15:30)
[2018-12-20] MEDS ORDERED: LABETALOL HCL 20MG INJ IV (15:30)
[2018-12-20] MEDS ORDERED: ONDANSETRON 4 MG INJ IV ×2 (15:30)
[2018-12-20] MEDS ORDERED: OXYCODONE/ACETAMINOPHEN (5/325) TAB PO ×2 (15:30)
[2018-12-20] MEDS ORDERED: NALOXONE (0.4 MG/ML) INJ IV (15:30)
[2018-12-20] MEDS ORDERED: KETOROLAC 30 MG INJ IV (15:30)
[2018-12-20] MEDS ORDERED: DIPHENHYDRAMINE 50 MG INJ IV ×2 (15:30)
[2018-12-20] MEDS: SOD CHLORIDE 0.9% 1,000 ML IV (15:45)
[2018-12-20] MEDS: morphine 2 MG INJ IV ×2 (18:50→22:06)
[2018-12-20] MEDS: [UNRECOGNIZED DRUG - REMARK] XX (21:00)
[2018-12-20] MEDS: ATORVASTATIN 40 MG TAB PO (21:04)
[2018-12-20] MEDS: CEFAZOLIN 2 GM/50 ML (PMX) 50 ML IVPB (22:12)
[2018-12-21] MEDS: morphine 2 MG INJ IV ×2 (04:06→08:42)
[2018-12-21] MEDS: CEFAZOLIN 2 GM/50 ML (PMX) 50 ML IVPB ×2 (05:26→18:49)
[2018-12-21 06:25] LABS: ADD MAN DIFF? NO
[2018-12-21 06:37] LABS: BASOPHILS % 0.1 % (0.0-2.0); HEMATOCRIT 35.2 % (37.0-47.0); LYMPHOCYTES # 1.1 10^3/ul (0.8-2.9); MEAN CORPUSCULAR HEMOGLOBIN 27.6 pg (29.0-33.0); MEAN CORPUSCULAR HGB CONC 31.3 g/dl (32.0-37.0); MEAN CORPUSCULAR VOLUME 88.4 fl (82.0-101.0); MEAN PLATELET VOLUME 9.5 fl (7.4-10.4); MONOCYTE # 0.4 10^3/ul (0.3-0.9); NEUTROPHIL # 7.2 10^3/ul (1.6-7.5); NEUTROPHILS % 82.2 % (39.0-77.0); PLATELET COUNT 225 10^3/UL (140-415); RED BLOOD COUNT 3.98 10^6/ul (4.20-5.40); RED CELL DISTRIBUTION WIDTH 14.2 % (11.5-14.5)
[2018-12-21 06:37] LABS: WHITE BLOOD COUNT 8.8 10^3/ul (4.8-10.8)
[2018-12-21] MEDS: SOD CHLORIDE 0.9% 1,000 ML IV ×2 (06:41→10:05)
[2018-12-21] MEDS: HYDROmorphONE 0.5 MG/0.5 ML SYG IV ×2 (08:08→11:39)
[2018-12-21] MEDS: ASPIRIN 325 MG TAB PO (08:08)
[2018-12-21] MEDS: DOCUSATE SODIUM 100 MG CAP PO (08:09)
[2018-12-21] MEDS: clonAZEPAM 0.5 MG TAB PO ×2 (08:09→20:53)
[2018-12-21] MEDS: ESCITALOPRAM 10 MG TAB PO (08:09)
[2018-12-21] MEDS: ENOXAPARIN 40 MG/0.4 ML SYG SC (08:21)
[2018-12-21] MEDS: [UNRECOGNIZED DRUG - REMARK] XX ×2 (09:00→20:55)
[2018-12-21] MEDS: SENNA TAB PO (09:00)
[2018-12-21] MEDS: HYDROmorphONE 1 MG/ML SYG IV (13:50)
[2018-12-21] MEDS: oxyCODONE 5 MG TAB PO ×2 (16:34→20:53)
[2018-12-21] MEDS: ATORVASTATIN 40 MG TAB PO (20:52)
[2018-12-22] MEDS: CEFAZOLIN 2 GM/50 ML (PMX) 50 ML IVPB ×4 (00:43→21:46)
[2018-12-22] MEDS: oxyCODONE 5 MG TAB PO (01:25)
[2018-12-22] MEDS: morphine 2 MG INJ IV ×2 (03:54→08:07)
[2018-12-22] MEDS: ESCITALOPRAM 10 MG TAB PO (08:33)
[2018-12-22] MEDS: clonAZEPAM 0.5 MG TAB PO ×2 (08:33→20:16)
[2018-12-22] MEDS: ASPIRIN 325 MG TAB PO (08:33)
[2018-12-22] MEDS: ENOXAPARIN 40 MG/0.4 ML SYG SC (08:34)
[2018-12-22] MEDS: DOCUSATE SODIUM 100 MG CAP PO (08:34)
[2018-12-22 08:36] LABS: ADD MAN DIFF? NO
[2018-12-22] MEDS: SENNA TAB PO (08:36)
[2018-12-22] MEDS: [UNRECOGNIZED DRUG - REMARK] XX ×2 (08:38→20:16)
[2018-12-22 08:42] LABS: BASOPHILS % 0.4 % (0.0-2.0); EOSINOPHILS # 0.4 10^3/ul (0.0-0.5); EOSINOPHILS % 3.2 % (0.0-7.0); HEMATOCRIT 34.1 % (37.0-47.0); HEMOGLOBIN 10.8 g/dl (12.0-16.0); LYMPHOCYTES % 36.8 % (15.0-51.0); MEAN CORPUSCULAR HEMOGLOBIN 27.7 pg (29.0-33.0); MEAN CORPUSCULAR HGB CONC 31.7 g/dl (32.0-37.0); MEAN CORPUSCULAR VOLUME 87.4 fl (82.0-101.0); MEAN PLATELET VOLUME 9.8 fl (7.4-10.4); MONOCYTE # 0.7 10^3/ul (0.3-0.9); MONOCYTES % 6.8 % (0.0-11.0); NEUTROPHIL # 5.7 10^3/ul (1.6-7.5); NEUTROPHILS % 52.4 % (39.0-77.0); PLATELET COUNT 226 10^3/UL (140-415); RED CELL DISTRIBUTION WIDTH 14.6 % (11.5-14.5)
[2018-12-22 08:42] LABS: WHITE BLOOD COUNT 10.9 10^3/ul (4.8-10.8)
[2018-12-22] MEDS: KETOROLAC 30 MG INJ IV ×2 (14:11→20:18)
[2018-12-22] MEDS: ATORVASTATIN 40 MG TAB PO (20:15)
[2018-12-22] MEDS: ASCORBIC ACID 500 MG TAB PO (20:15)
[2018-12-23] MEDS: KETOROLAC 30 MG INJ IV ×2 (03:31→09:46)
[2018-12-23] MEDS: CEFAZOLIN 2 GM/50 ML (PMX) 50 ML IVPB ×3 (05:56→21:41)
[2018-12-23] MEDS: [UNRECOGNIZED DRUG - REMARK] XX ×2 (09:00→20:08)
[2018-12-23] MEDS: ENOXAPARIN 40 MG/0.4 ML SYG SC (09:00)
[2018-12-23] MEDS: SENNA TAB PO (09:03)
[2018-12-23] MEDS: DOCUSATE SODIUM 100 MG CAP PO (09:03)
[2018-12-23] MEDS: ASPIRIN 81 MG TAB PO (09:03)
[2018-12-23] MEDS: clonAZEPAM 0.5 MG TAB PO ×2 (09:03→20:02)
[2018-12-23] MEDS: ASCORBIC ACID 500 MG TAB PO ×2 (09:03→20:01)
[2018-12-23] MEDS: ESCITALOPRAM 10 MG TAB PO (09:03)
[2018-12-23] MEDS: MULTIVITAMINS/MINERALS TAB PO (09:03)
[2018-12-23] MEDS: oxyCODONE 5 MG TAB PO ×3 (11:10→20:08)
[2018-12-23] MEDS: ATORVASTATIN 40 MG TAB PO (20:01)
[2018-12-23] MEDS: MAGNESIUM HYDROXIDE 30ML CUP PO (21:40)
[2018-12-23] MEDS: POLYETHYLENE GLYCOL 17 GM PACKET PO (22:45)
[2018-12-24] MEDS: oxyCODONE 5 MG TAB PO (00:06)
[2018-12-24] MEDS: morphine 2 MG INJ IV ×4 (03:41→18:27)
[2018-12-24] MEDS: CEFAZOLIN 2 GM/50 ML (PMX) 50 ML IVPB ×2 (06:45→13:52)
[2018-12-24] MEDS: SENNA TAB PO ×2 (08:52→08:59)
[2018-12-24] MEDS: DOCUSATE SODIUM 100 MG CAP PO ×2 (08:52→08:59)
[2018-12-24] MEDS: MULTIVITAMINS/MINERALS TAB PO (08:52)
[2018-12-24] MEDS: clonAZEPAM 0.5 MG TAB PO ×2 (08:52→20:25)
[2018-12-24] MEDS: ASCORBIC ACID 500 MG TAB PO ×2 (08:52→20:25)
[2018-12-24] MEDS: ASPIRIN 81 MG TAB PO (08:52)
[2018-12-24] MEDS: ESCITALOPRAM 10 MG TAB PO (08:52)
[2018-12-24] MEDS: ENOXAPARIN 40 MG/0.4 ML SYG SC (08:53)
[2018-12-24] MEDS: [UNRECOGNIZED DRUG - REMARK] XX ×2 (08:53→20:25)
[2018-12-24] MEDS: ATORVASTATIN 40 MG TAB PO (20:25)
== END 2018-12-24 21:20 | DRG 481 ==
LOC: PP2 14:05
PROC: 0QS706Z Reposition Left Upper Femur with Intramedullary Internal Fixation Device, Open Approach (ICD-10-PCS; principal; 2018-12-20 13:30)
DX: S72.145A Nondisplaced intertrochanteric fracture of left femur, initial encounter for closed fracture (principal); I69.354 Hemiplegia and hemiparesis following cerebral infarction affecting left non-dominant side; J44.9 Chronic obstructive pulmonary disease, unspecified; I12.9 Hypertensive chronic kidney disease with stage 1 through stage 4 chronic kidney disease, or unspecified chronic kidney disease; N18.9 Chronic kidney disease, unspecified; Z95.0 Presence of cardiac pacemaker; W19.XXXA Unspecified fall, initial encounter; F17.200 Nicotine dependence, unspecified, uncomplicated
CPT/HCPCS: 71045; 73500; 73530; 80048; 85025; 85610; 85730; 86850; 86900; 86901; 86920; 87081; 93005; 97110; 97116; 97162; 97530

== ENCOUNTER 2018-12-24 21:40 | Inpatient (IN) | payer MEDICARE, OTHER ==
[2018-12-24] MEDS ORDERED: POLYETHYLENE GLYCOL 17 GM PACKET PO (22:00)
[2018-12-24] MEDS ORDERED: BISACODYL 10 MG SUPP PR (22:00)
[2018-12-24] MEDS ORDERED: LACTULOSE 30ML CUP PO (22:00)
[2018-12-24] MEDS ORDERED: PENDING SANTYL ORDER FOR WOUND CARE XX (22:00)
[2018-12-24] MEDS: morphine 4 MG/ML VIAL IV (23:19)
[2018-12-24] MEDS: ZOLPIDEM 5 MG TAB PO (23:19)
[2018-12-25] MEDS: morphine 4 MG/ML VIAL IV ×5 (06:08→21:38)
[2018-12-25 07:28] LABS: ADD MAN DIFF? NO
[2018-12-25 07:32] LABS: WHITE BLOOD COUNT 9.3 10^3/ul (4.8-10.8)
[2018-12-25 07:32] LABS: BASOPHILS % 0.4 % (0.0-2.0); EOSINOPHILS # 0.7 10^3/ul (0.0-0.5); EOSINOPHILS % 7.3 % (0.0-7.0); HEMATOCRIT 31.1 % (37.0-47.0); HEMOGLOBIN 9.9 g/dl (12.0-16.0); LYMPHOCYTES # 2.8 10^3/ul (0.8-2.9); LYMPHOCYTES % 29.8 % (15.0-51.0); MEAN CORPUSCULAR HGB CONC 31.8 g/dl (32.0-37.0); MEAN CORPUSCULAR VOLUME 87.9 fl (82.0-101.0); MONOCYTE # 0.7 10^3/ul (0.3-0.9); MONOCYTES % 7.3 % (0.0-11.0); NEUTROPHIL # 5.1 10^3/ul (1.6-7.5); NEUTROPHILS % 54.6 % (39.0-77.0); PLATELET COUNT 220 10^3/UL (140-415); RED BLOOD COUNT 3.54 10^6/ul (4.20-5.40); RED CELL DISTRIBUTION WIDTH 14.8 % (11.5-14.5)
[2018-12-25 07:58] LABS: ALANINE AMINOTRANSFERASE 7 IU/L (13-69); ALBUMIN 3.1 g/dl (3.3-4.9); ALBUMIN/GLOBULIN RATIO 0.96; ALKALINE PHOSPHATASE 114 IU/L (42-121); ANION GAP 7 (5-13); ASPARTATE AMINO TRANSFERASE 22 IU/L (15-46); BILIRUBIN,INDIRECT 1.2 mg/dl (0-1.1); BILIRUBIN,TOTAL 1.2 mg/dl (0.2-1.3); BLOOD UREA NITROGEN 19 mg/dl (7-20); CALCIUM 8.7 mg/dl (8.4-10.2); CARBON DIOXIDE 24 mmol/L (21-31); CHLORIDE 109 mmol/L (97-110); CREATININE 0.91 mg/dl (0.44-1.00); Estimated GFR > 60 mL/min (>60); GLUCOSE 92 mg/dl (70-220); POTASSIUM 3.6 mmol/L (3.5-5.1); SODIUM 140 mmol/L (135-144); TOTAL PROTEIN 6.3 g/dl (6.1-8.1)
[2018-12-25] MEDS: ENOXAPARIN 40 MG/0.4 ML SYG SC ×2 (09:00→09:33)
[2018-12-25] MEDS: DOCUSATE SODIUM 100 MG CAP PO ×3 (09:00→21:36)
[2018-12-25] MEDS: ASCORBIC ACID 500 MG TAB PO ×2 (09:31→21:36)
[2018-12-25] MEDS: ASPIRIN 81 MG TAB PO (09:31)
[2018-12-25] MEDS: MULTIVITAMINS/MINERALS TAB PO (09:32)
[2018-12-25] MEDS: ESCITALOPRAM 10 MG TAB PO (09:32)
[2018-12-25] MEDS: clonAZEPAM 0.5 MG TAB PO ×2 (09:34→21:36)
[2018-12-25] MEDS: ATORVASTATIN 40 MG TAB PO (21:36)
[2018-12-25] MEDS: SENNA TAB PO (21:36)
[2018-12-25] MEDS: ZOLPIDEM 5 MG TAB PO (21:37)
[2018-12-26] MEDS: morphine 4 MG/ML VIAL IV ×4 (05:29→15:51)
[2018-12-26] MEDS: ENOXAPARIN 40 MG/0.4 ML SYG SC (09:00)
[2018-12-26] MEDS: ASPIRIN 81 MG TAB PO (09:00)
[2018-12-26] MEDS: DOCUSATE SODIUM 100 MG CAP PO ×2 (09:00→21:55)
[2018-12-26] MEDS: MULTIVITAMINS/MINERALS TAB PO (09:00)
[2018-12-26] MEDS: ESCITALOPRAM 10 MG TAB PO (09:01)
[2018-12-26] MEDS: clonAZEPAM 0.5 MG TAB PO ×2 (09:01→21:55)
[2018-12-26] MEDS: ASCORBIC ACID 500 MG TAB PO ×2 (09:01→21:55)
[2018-12-26] MEDS: morphine 2 MG INJ IV ×2 (19:13→22:28)
[2018-12-26] MEDS: ATORVASTATIN 40 MG TAB PO (21:55)
[2018-12-26] MEDS: SENNA TAB PO (21:55)
[2018-12-27] MEDS: ZOLPIDEM 5 MG TAB PO (00:16)
[2018-12-27] MEDS: morphine 2 MG INJ IV ×5 (02:44→19:44)
[2018-12-27] MEDS: MULTIVITAMINS/MINERALS TAB PO (09:00)
[2018-12-27] MEDS: ENOXAPARIN 40 MG/0.4 ML SYG SC (09:00)
[2018-12-27] MEDS: clonAZEPAM 0.5 MG TAB PO ×2 (09:01→20:47)
[2018-12-27] MEDS: DOCUSATE SODIUM 100 MG CAP PO ×2 (09:01→20:47)
[2018-12-27] MEDS: ASCORBIC ACID 500 MG TAB PO ×2 (09:01→20:47)
[2018-12-27] MEDS: ESCITALOPRAM 10 MG TAB PO (09:01)
[2018-12-27] MEDS: ASPIRIN 81 MG TAB PO (09:01)
[2018-12-27 11:26] LABS: ADD UMIC YES; UR ASCORBIC ACID 40 mg/dL (NEGATIVE); UR BACTERIA FEW /HPF (NONE SEEN); UR BILIRUBIN (Dip) NEGATIVE (NEGATIVE); UR BLOOD (Dip) NEGATIVE (NEGATIVE); UR CLARITY SLIGHTLY CLOUDY (CLEAR); UR COLOR YELLOW (YELLOW); UR GLUCOSE (Dip) NEGATIVE (NEGATIVE); UR KETONES (Dip) NEGATIVE (NEGATIVE); UR LEUKOCYTE ESTERASE (Dip) TRACE Leu/ul (NEGATIVE); UR NITRITE (Dip) NEGATIVE (NEGATIVE); UR RBC 6 /HPF (0-5); UR SPECIFIC GRAVITY (Dip) 1.008 (1.003-1.030); UR TOTAL PROTEIN (Dip) NEGATIVE (NEGATIVE); UR UROBILINOGEN (Dip) NEGATIVE (NEGATIVE); UR WBC 11 /HPF (0-5)
[2018-12-27] MEDS: SENNA TAB PO (20:47)
[2018-12-27] MEDS: ATORVASTATIN 40 MG TAB PO (20:47)
[2018-12-28] MEDS: morphine 2 MG INJ IV ×5 (01:40→23:58)
[2018-12-28] MEDS: clonAZEPAM 0.5 MG TAB PO ×2 (08:43→21:31)
[2018-12-28] MEDS: ASCORBIC ACID 500 MG TAB PO ×2 (08:44→21:30)
[2018-12-28] MEDS: MULTIVITAMINS/MINERALS TAB PO (08:44)
[2018-12-28] MEDS: ASPIRIN 81 MG TAB PO (08:46)
[2018-12-28] MEDS: DOCUSATE SODIUM 100 MG CAP PO ×2 (08:46→21:30)
[2018-12-28] MEDS: ESCITALOPRAM 10 MG TAB PO (08:48)
[2018-12-28] MEDS: ENOXAPARIN 40 MG/0.4 ML SYG SC (08:48)
[2018-12-28] MEDS: SENNA TAB PO (21:30)
[2018-12-28] MEDS: ATORVASTATIN 40 MG TAB PO (21:31)
[2018-12-28] MEDS: ZOLPIDEM 5 MG TAB PO (22:27)
[2018-12-29] MEDS: morphine 2 MG INJ IV ×5 (05:09→21:32)
[2018-12-29] MEDS: ENOXAPARIN 40 MG/0.4 ML SYG SC (09:00)
[2018-12-29] MEDS: clonAZEPAM 0.5 MG TAB PO ×2 (09:44→21:30)
[2018-12-29] MEDS: MULTIVITAMINS/MINERALS TAB PO (09:44)
[2018-12-29] MEDS: DOCUSATE SODIUM 100 MG CAP PO ×2 (09:44→21:29)
[2018-12-29] MEDS: ASPIRIN 81 MG TAB PO (09:45)
[2018-12-29] MEDS: ESCITALOPRAM 10 MG TAB PO (09:45)
[2018-12-29] MEDS: ASCORBIC ACID 500 MG TAB PO ×2 (09:46→21:29)
[2018-12-29] MEDS: TRIMETHOPRIM/SULFAMETHOX (DS) TAB PO ×2 (10:51→21:29)
[2018-12-29] MEDS: ATORVASTATIN 40 MG TAB PO (21:29)
[2018-12-29] MEDS: SENNA TAB PO (21:29)
[2018-12-30] MEDS: morphine 2 MG INJ IV ×6 (00:32→22:56)
[2018-12-30] MEDS: ENOXAPARIN 40 MG/0.4 ML SYG SC (09:00)
[2018-12-30] MEDS: MULTIVITAMINS/MINERALS TAB PO (10:37)
[2018-12-30] MEDS: clonAZEPAM 0.5 MG TAB PO ×2 (10:37→20:59)
[2018-12-30] MEDS: ASCORBIC ACID 500 MG TAB PO ×2 (10:37→21:00)
[2018-12-30] MEDS: ASPIRIN 81 MG TAB PO (10:38)
[2018-12-30] MEDS: TRIMETHOPRIM/SULFAMETHOX (DS) TAB PO ×2 (10:38→20:59)
[2018-12-30] MEDS: DOCUSATE SODIUM 100 MG CAP PO ×2 (10:38→20:58)
[2018-12-30] MEDS: ESCITALOPRAM 10 MG TAB PO (10:39)
[2018-12-30] MEDS: oxyCODONE 5 MG TAB PO (15:05)
[2018-12-30] MEDS: MAGNESIUM HYDROXIDE 30ML CUP PO (19:41)
[2018-12-30] MEDS: SENNA TAB PO (20:59)
[2018-12-30] MEDS: ATORVASTATIN 40 MG TAB PO (21:00)
[2018-12-30] MEDS: ZOLPIDEM 5 MG TAB PO (21:04)
[2018-12-31] MEDS: morphine 2 MG INJ IV ×6 (04:03→22:50)
[2018-12-31] MEDS: ASCORBIC ACID 500 MG TAB PO ×2 (08:52→20:07)
[2018-12-31] MEDS: MULTIVITAMINS/MINERALS TAB PO (08:52)
[2018-12-31] MEDS: ASPIRIN 81 MG TAB PO (08:53)
[2018-12-31] MEDS: DOCUSATE SODIUM 100 MG CAP PO ×2 (08:53→21:00)
[2018-12-31] MEDS: ESCITALOPRAM 10 MG TAB PO (08:53)
[2018-12-31] MEDS: TRIMETHOPRIM/SULFAMETHOX (DS) TAB PO ×2 (08:53→20:07)
[2018-12-31] MEDS: clonAZEPAM 0.5 MG TAB PO ×2 (08:53→20:08)
[2018-12-31] MEDS: ENOXAPARIN 40 MG/0.4 ML SYG SC (08:56)
[2018-12-31] MEDS: MAGNESIUM HYDROXIDE 30ML CUP PO (18:18)
[2018-12-31] MEDS: ATORVASTATIN 40 MG TAB PO (20:07)
[2018-12-31] MEDS: ZOLPIDEM 5 MG TAB PO (20:07)
[2018-12-31] MEDS: SENNA TAB PO (21:00)
[2019-01-01] MEDS: morphine 2 MG INJ IV ×5 (03:22→20:44)
[2019-01-01] MEDS: TRIMETHOPRIM/SULFAMETHOX (DS) TAB PO ×2 (08:43→20:43)
[2019-01-01] MEDS: MULTIVITAMINS/MINERALS TAB PO (08:43)
[2019-01-01] MEDS: DOCUSATE SODIUM 100 MG CAP PO ×2 (08:43→20:43)
[2019-01-01] MEDS: ASCORBIC ACID 500 MG TAB PO ×2 (08:43→20:43)
[2019-01-01] MEDS: ASPIRIN 81 MG TAB PO (08:43)
[2019-01-01] MEDS: ESCITALOPRAM 10 MG TAB PO (08:43)
[2019-01-01] MEDS: clonAZEPAM 0.5 MG TAB PO ×2 (08:44→20:43)
[2019-01-01] MEDS: ENOXAPARIN 40 MG/0.4 ML SYG SC (08:44)
[2019-01-01] MEDS: ZOLPIDEM 5 MG TAB PO (20:43)
[2019-01-01] MEDS: SENNA TAB PO (20:43)
[2019-01-01] MEDS: ATORVASTATIN 40 MG TAB PO (20:43)
[2019-01-02] MEDS: morphine 2 MG INJ IV ×6 (00:55→21:04)
[2019-01-02] MEDS: ESCITALOPRAM 10 MG TAB PO (08:45)
[2019-01-02] MEDS: MULTIVITAMINS/MINERALS TAB PO (08:46)
[2019-01-02] MEDS: clonAZEPAM 0.5 MG TAB PO ×2 (08:46→20:56)
[2019-01-02] MEDS: ASCORBIC ACID 500 MG TAB PO ×2 (08:47→20:55)
[2019-01-02] MEDS: TRIMETHOPRIM/SULFAMETHOX (DS) TAB PO ×2 (08:47→20:55)
[2019-01-02] MEDS: ASPIRIN 81 MG TAB PO (08:47)
[2019-01-02] MEDS: DOCUSATE SODIUM 100 MG CAP PO ×2 (08:47→20:55)
[2019-01-02] MEDS: ENOXAPARIN 40 MG/0.4 ML SYG SC (08:50)
[2019-01-02] MEDS: SENNA TAB PO (20:55)
[2019-01-02] MEDS: ATORVASTATIN 40 MG TAB PO (20:55)
[2019-01-02] MEDS: ZOLPIDEM 5 MG TAB PO (21:04)
[2019-01-03] MEDS: ENOXAPARIN 40 MG/0.4 ML SYG SC (08:36)
[2019-01-03] MEDS: ASCORBIC ACID 500 MG TAB PO ×2 (08:38→20:07)
[2019-01-03] MEDS: MULTIVITAMINS/MINERALS TAB PO (08:38)
[2019-01-03] MEDS: TRIMETHOPRIM/SULFAMETHOX (DS) TAB PO ×2 (08:38→20:06)
[2019-01-03] MEDS: clonAZEPAM 0.5 MG TAB PO ×2 (08:38→20:07)
[2019-01-03] MEDS: ASPIRIN 81 MG TAB PO (08:38)
[2019-01-03] MEDS: ESCITALOPRAM 10 MG TAB PO (08:38)
[2019-01-03] MEDS: DOCUSATE SODIUM 100 MG CAP PO ×2 (08:45→21:00)
[2019-01-03] MEDS: morphine 2 MG INJ IV ×5 (08:51→23:42)
[2019-01-03] MEDS: ATORVASTATIN 40 MG TAB PO (20:06)
[2019-01-03] MEDS: ZOLPIDEM 5 MG TAB PO (20:07)
[2019-01-03] MEDS: SENNA TAB PO (21:00)
[2019-01-04] MEDS: morphine 2 MG INJ IV ×3 (04:52→20:14)
[2019-01-04] MEDS: ASPIRIN 81 MG TAB PO (08:46)
[2019-01-04] MEDS: ASCORBIC ACID 500 MG TAB PO ×2 (08:47→20:14)
[2019-01-04] MEDS: clonAZEPAM 0.5 MG TAB PO ×2 (08:47→20:14)
[2019-01-04] MEDS: TRIMETHOPRIM/SULFAMETHOX (DS) TAB PO ×2 (08:47→20:14)
[2019-01-04] MEDS: ESCITALOPRAM 10 MG TAB PO (08:47)
[2019-01-04] MEDS: MULTIVITAMINS/MINERALS TAB PO (08:47)
[2019-01-04] MEDS: DOCUSATE SODIUM 100 MG CAP PO ×2 (08:47→20:14)
[2019-01-04] MEDS: ENOXAPARIN 40 MG/0.4 ML SYG SC (08:48)
[2019-01-04] MEDS: oxyCODONE 5 MG TAB PO ×2 (12:18→16:58)
[2019-01-04] MEDS ORDERED: LINAGLIPTIN 5 MG TABLET (17:10)
[2019-01-04] MEDS: ATORVASTATIN 40 MG TAB PO (20:14)
[2019-01-04] MEDS: ZOLPIDEM 5 MG TAB PO (20:14)
[2019-01-04] MEDS: SENNA TAB PO (20:14)
[2019-01-05] MEDS: morphine 2 MG INJ IV ×3 (00:38→20:32)
[2019-01-05] MEDS: oxyCODONE 5 MG TAB PO ×3 (06:19→17:22)
[2019-01-05] MEDS: ENOXAPARIN 40 MG/0.4 ML SYG SC (08:24)
[2019-01-05] MEDS: TRIMETHOPRIM/SULFAMETHOX (DS) TAB PO ×2 (09:15→20:28)
[2019-01-05] MEDS: MULTIVITAMINS/MINERALS TAB PO (09:15)
[2019-01-05] MEDS: DOCUSATE SODIUM 100 MG CAP PO ×2 (09:15→20:28)
[2019-01-05] MEDS: clonAZEPAM 0.5 MG TAB PO ×2 (09:15→20:28)
[2019-01-05] MEDS: ESCITALOPRAM 10 MG TAB PO (09:15)
[2019-01-05] MEDS: ASPIRIN 81 MG TAB PO (09:16)
[2019-01-05] MEDS: ASCORBIC ACID 500 MG TAB PO ×2 (09:17→20:28)
[2019-01-05] MEDS: ZOLPIDEM 5 MG TAB PO (20:28)
[2019-01-05] MEDS: ATORVASTATIN 40 MG TAB PO (20:28)
[2019-01-05] MEDS: SENNA TAB PO (20:28)
[2019-01-06] MEDS: morphine 2 MG INJ IV (01:33)
[2019-01-06] MEDS: oxyCODONE 5 MG TAB PO ×4 (06:28→20:29)
[2019-01-06] MEDS: MULTIVITAMINS/MINERALS TAB PO (08:20)
[2019-01-06] MEDS: ASPIRIN 81 MG TAB PO (08:20)
[2019-01-06] MEDS: TRIMETHOPRIM/SULFAMETHOX (DS) TAB PO ×2 (08:21→20:26)
[2019-01-06] MEDS: clonAZEPAM 0.5 MG TAB PO ×2 (08:21→20:26)
[2019-01-06] MEDS: ESCITALOPRAM 10 MG TAB PO (08:21)
[2019-01-06] MEDS: ASCORBIC ACID 500 MG TAB PO ×2 (08:21→20:28)
[2019-01-06] MEDS: ENOXAPARIN 40 MG/0.4 ML SYG SC (08:22)
[2019-01-06] MEDS: DOCUSATE SODIUM 100 MG CAP PO ×2 (08:22→20:28)
[2019-01-06] MEDS: ZOLPIDEM 5 MG TAB PO (20:26)
[2019-01-06] MEDS: ATORVASTATIN 40 MG TAB PO (20:28)
[2019-01-06] MEDS ORDERED: CALCIUM CARBONATE 500 MG CHEW TAB PO (20:30)
[2019-01-06] MEDS: SENNA TAB PO (21:00)
[2019-01-06] MEDS ORDERED: HYDROCORTISONE 0.5% 28.35 GM CR TOP (23:00)
[2019-01-07] MEDS: oxyCODONE 5 MG TAB PO ×3 (02:32→10:39)
[2019-01-07] MEDS: ENOXAPARIN 40 MG/0.4 ML SYG SC (08:50)
[2019-01-07] MEDS: DOCUSATE SODIUM 100 MG CAP PO (08:50)
[2019-01-07] MEDS: ASCORBIC ACID 500 MG TAB PO (08:50)
[2019-01-07] MEDS: TRIMETHOPRIM/SULFAMETHOX (DS) TAB PO (08:50)
[2019-01-07] MEDS: ESCITALOPRAM 10 MG TAB PO (08:50)
[2019-01-07] MEDS: clonAZEPAM 0.5 MG TAB PO (08:50)
[2019-01-07] MEDS: ASPIRIN 81 MG TAB PO (08:50)
[2019-01-07] MEDS: MULTIVITAMINS/MINERALS TAB PO (08:50)
== END 2019-01-07 14:00 | disposition home or self-care (01) | DRG 560 ==
LOC: VRC 21:40
DX: S72.142D Displaced intertrochanteric fracture of left femur, subsequent encounter for closed fracture with routine healing (principal); I69.354 Hemiplegia and hemiparesis following cerebral infarction affecting left non-dominant side; F33.1 Major depressive disorder, recurrent, moderate; N39.0 Urinary tract infection, site not specified; G89.18 Other acute postprocedural pain; J44.9 Chronic obstructive pulmonary disease, unspecified; E78.5 Hyperlipidemia, unspecified; D64.9 Anemia, unspecified; Z72.0 Tobacco use; F06.8 Other specified mental disorders due to known physiological condition
CPT/HCPCS: 80053; 81001; 85025; 87081; 87086; 92507; 92523; 92526; 92610; 97110; 97116; 97150; 97163; 97166; 97530; 97535; 97542